=== PATIENT | male | born 1985 | race Caucasian/White ===

== ENCOUNTER → 2021-02-14 10:10 | Outpatient (BNVA) | payer BC, SELFPAY | PROVIDERS: Visit Provider Nurse Practitioner Family | DX: K57.92 Diverticulitis of intestine, part unspecified, without perforation or abscess without bleeding (principal); R10.32 Left lower quadrant pain | CPT/HCPCS: 81000; 85025 ==

== ENCOUNTER → 2023-01-10 16:52 | Outpatient (BNVA) | payer BC, SELFPAY | PROVIDERS: PCP Nurse Practitioner Family; Visit Provider Nurse Practitioner Family | DX: R51.9 Headache, unspecified (principal); R53.83 Other fatigue | CPT/HCPCS: 80053; 84403; 85025 ==

== ENCOUNTER → 2024-06-04 11:07 | Outpatient (BNVA) | payer BC, SELFPAY | PROVIDERS: PCP Nurse Practitioner Family; Visit Provider Nurse Practitioner Family | DX: R53.83 Other fatigue (principal) | CPT/HCPCS: 87070; 87400; 87426; 87880 ==